=== PATIENT | male | born 1990 | race Two or more races ===

== ENCOUNTER 2020-08-24 03:36 | Emergency (ER) | payer SELFPAY ==
[~2020-08-24] VITALS: Ht 185.4 cm; Wt 99.8 kg
[2020-08-24] MEDS ORDERED: IBUPROFEN 600 MG TABLET PO ONE (04:00)
[2020-08-24] MEDS ORDERED: ACETAMINOPHEN ES 500 MG TABLET PO ONE (04:00)
--- NOTE | 2020-08-24 04:00 | NUR ---
BIBS FOR C/O H/A, FEVER AND DIARRHEA STARTED JUST TONIGHT. DENIED COUGH. 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 PT AMBULATORY TO BED 7 WAS PLACED ON AMONITOR, VSS EXCEPT THE FEVER. WILL CONT TO MONITOR,
[2020-08-24] MEDS ORDERED: ACETAMINOPHEN ES 500 MG TABLET ONE (04:03)
[2020-08-24] MEDS ORDERED: IBUPROFEN 600 MG TABLET ONE (04:03)
--- NOTE | 2020-08-24 04:14 | NUR ---
XRAY AT BEDSIDE.
[2020-08-24 04:23] LABS: BASOPHILS # (AUTO) 0.1 /CMM (0.0-0.2); BASOPHILS % (AUTO) 0.4 % (0.0-2.0); EOSINOPHILS % (AUTO) 0.6 % (0.0-6.0); HEMATOCRIT 49 % (39-51); HEMOGLOBIN 15.6 g/dL (13.5-17.5); LYMPHOCYTES # (AUTO) 1.3 /CMM (0.8-4.8); LYMPHOCYTES % (AUTO) 9.8 % (20.0-44.0); MEAN CORPUSCULAR HGB CONC 32 g/dl (31.0-36.0); MEAN CORPUSCULAR VOLUME 80 fL (80-96); MONOCYTES # (AUTO) 0.8 /CMM (0.1-1.30); MONOCYTES % (AUTO) 5.8 % (2.0-12.0); NEUTROPHILS % (AUTO) 83.4 % (43.0-81.0); PLATELET COUNT (AUTO) 236 /CMM (150-450); RED BLOOD CELL COUNT(AUTO) 6.06 MIL/uL (4.5-6.0); WHITE BLOOD COUNT (AUTO) 13.2 K/uL (4.3-11.0)
[2020-08-24 04:29] LABS: CALCIUM, SERUM 9.2 mg/dL (8.5-10.1); CREATININE 1.2 mg/dL (0.6-1.3); POTASSIUM 3.8 mmol/L (3.5-5.1)
[2020-08-24] MEDS ORDERED: IV NS 0.9% 1,000 ML IV ONE (04:30)
[2020-08-24 04:47] LABS: ALBUMIN 4.2 g/dL (3.4-5.0); BILIRUBIN,DIRECT 0.2 mg/dL (0.0-0.2); BILIRUBIN,TOTAL 0.7 mg/dL (0.2-1.0); TOTAL PROTEIN, SERUM 8.2 g/dL (6.4-8.2)
--- NOTE | 2020-08-24 05:43 | NUR ---
pt is medically stable for D/C. IV removed. Catheter intact and site benign. Pressure and 4x4 applied to site. No bleeding noted.Patient discharged to home in stable condition. Rx and Written and verbal after care instructions given. Patient verbalizes understanding of instruction.
[2020-08-24 05:44] VITALS: BP 121/78
== END 2020-08-24 05:45 | disposition home or self-care (01) ==
LOC: ER 03:39
DX: B34.9 Viral infection, unspecified (principal); Z20.828 Contact with and (suspected) exposure to other viral communicable diseases
CPT/HCPCS: 36415; 71045; 80048; 80076; 83690; 85025; 96360; 99284; C9803; J7030; U0003